=== PATIENT | female | born 1955 | race Caucasian/White ===

== ENCOUNTER → 2024-05-04 09:30 | Outpatient (REF) | payer MEDICARE, OTHER, SELFPAY | LOC: HWRAD 09:30 | PROVIDERS: ATTENDING PHYSICIAN Family Medicine | DX: R29.890 Loss of height (principal); Z12.31 Encounter for screening mammogram for malignant neoplasm of breast; Z78.0 Asymptomatic menopausal state | CPT/HCPCS: 77063; 77067; 77080 ==

== ENCOUNTER → 2024-05-17 07:37 | Outpatient (REF) | payer MEDICARE, OTHER, SELFPAY ==
[2024-05-17 09:05] LABS: % Basophils 1.1 % (0-2); % Eosinophils 4.8 % (0-6); % Immature Granulocytes 0.2 % (0-0.5); % Lymphocytes 36.2 % (20.5-51.1); % Monocytes 10.3 % (1.7-9.3); % Neutrophils 47.4 % (42.2-75.2); Absolute Basophils 0.1 10^3/uL (0-0.2); Absolute Eosinophils 0.4 10^3/uL (0-0.7); Absolute Monocytes 0.9 10^3/uL (0.1-0.6); Absolute Neutrophils 3.9 10^3/uL (1.4-6.5); Hematocrit 45.7 % (37.0-47.0); Hemoglobin 15.8 g/dL (12.0-16.0); Mean Corp Hgb Conc. 34.6 g/dL (33.0-37.0); Mean Corpuscular Volume 86.9 fL (81.0-99.0); Nucleated Red Blood Cells % 0 %; Platelet Count 308 10^3/uL (130-400); Red Blood Cell Count 5.26 10^6/uL (4.20-5.40); Red Cell Dist. Width 14.6 % (11.5-14.5); White Blood Cell Count 8.3 10^3/uL (4.8-10.8)
[2024-05-17 09:15] LABS: ALT (SGPT) 40 U/L (0-35); AST (SGOT) 30 U/L (14-36); Albumin 4.4 g/dl (3.5-5.0); Alkaline Phosphatase 70 U/L (38-126); Blood Urea Nitrogen 21 mg/dl (7-17); Calcium 10.4 mg/dl (8.4-10.2); Carbon Dioxide 26 mmol/L (22-30); Chloride 106 mmol/L (98-107); Glucose 103 mg/dl (70-99); HDL Cholesterol 74 mg/dl; LDL Cholesterol, Calculated 89 mg/dl; Potassium 4.8 mmol/L (3.5-5.1); Sodium 142 mmol/L (135-145); Total Bilirubin 0.7 mg/dl (0.2-1.3); Total Cholesterol 189 mg/dl (50-199); Triglyceride 132 mg/dl (10-149); Very Low Density Lipoprotein 26 mg/dl (0-30); eGFR > 60.00
[2024-05-17 09:41] LABS: TSH Reflex To Free T4 0.71 uIU/ml (0.47-4.68)
== END ==
LOC: REG 07:37
PROVIDERS: ATTENDING PHYSICIAN Family Medicine
DX: I10 Essential (primary) hypertension (principal); E78.00 Pure hypercholesterolemia, unspecified; R53.83 Other fatigue
CPT/HCPCS: 36415; 80053; 80061; 84443; 85025

== ENCOUNTER 2024-10-19 09:30 | Emergency (ER) | payer MEDICARE, OTHER, SELFPAY ==
[2024-10-19 09:33] VITALS: BP 147/83
--- NOTE | 2024-10-19 10:31 | ED.GENMED ---
History of Present Illness
General
Chief Complaint: Musculo-Skeletal Complaint
Source: patient
Exam Limitations: none
Time Seen by Provider: 10/19/24 09:55
Nursing documentation reviewed up to this point in time: agreed with
History of Present Illness
History of Present Illness:
69-year-old female past medical history of hypertension hyperlipidemia presenting to the emergency department today with concerns of left-sided knee discomfort felt a pop to the back of her knee yesterday when stepping up the stairs. Ongoing
discomfort since able to walk but increased discomfort with bending of the knee. Denies any fevers redness or warmth.
Review of Systems
Review of Systems
Allergies reviewed?: Yes
All Other Systems: ROS reviewed and negative except as documented in HPI and ROS
Phy Exam
Physical Exam
Physical Exam:
GENERAL: Alert , in no apparent distress
EYE: pupils equal and reactive
NECK: Supple, no significant adenopathy.
ENT: o/p clr, mmm.
CARDIAC: Regular rate and rhythm .
LUNGS: Clear breath sounds bilaterally, no acute respiratory distress, no wheezes/rales/rhonchi
ABDOMEN: Soft, without focal tenderness, no r/g, no cvat
NEUROLOGICAL: Alert and oriented, no focal neuro deficits
SKIN: Warm and dry, skin intact.
MUSCULOSKELETAL: Mild swelling to the left knee no significant joint laxity increased discomfort with range of motion but able to range well until about 45 degrees. No discomfort to the hip or ankle, no edema, well perfused.
PSYCH: Normal and appropriate interaction.
Course
Orders/Labs/Results
Orders:
Orders
10/19/24 09:32
Knee, Left 4 or More Views [CR Knee - Left 4 Or More View*] Urgent
Comment:
Reason For Exam: pain
Vital Signs
Initial and Last Documented VS:
Initial Vital Signs
Temp Pulse Resp BP Pulse Ox
98.5 F 82 18 147/83 98
10/19/24 09:33 10/19/24 09:33 10/19/24 09:33 10/19/24 09:33 10/19/24 09:33
Last Documented Vital Signs
Temp Pulse Resp BP Pulse Ox
98.5 F 82 18 147/83 98
10/19/24 09:33 10/19/24 09:33 10/19/24 09:33 10/19/24 09:33 10/19/24 09:33
MDM/Problems Addressed
MDM/Problems Addressed:
69-year-old female presenting to the emergency department today with concerns of left knee pain after feeling a pop to her posterior knee yesterday. Had some mild pain over the past 5 days or so as well. Here no joint laxity x-ray without acute
abnormalities. Patient with likely internal knee derangement. Advised for close orthopedic follow-up. Return precautions given.
*Critical Care Note
Total Time (30-74mins, 75-104mins- exclusive of procedures): Not Applicable
ED Attending Note
-
Portions of this chart may have been created with voice recognition software.� Occasional wrong word or��sound alike� substitutions may have occurred due to the inherent limitations of voice recognition software.
Discharge Plan
Departure
Patient Disposition: Home (Routine Discharge)
Date of Disposition: 10/19/24
Time of Disposition: 10:33
Patient with high blood pressure during this ER visit?: No
Condition: Good
Covid-19: Not Applicable
Discharge Problem:
Left knee sprain
Instructions: Knee Sprain (DC)
Referrals:
Bette Kim MD [Family Provider] -
Shaw Harris MD [Active] - Follow up in 5-7 days
Activity Restrictions/Additional Instructions:
You came to the emergency department today with concerns of knee pain. This could be an internal knee injury. Please gradually increase activity and follow-up closely with orthopedics for further management. Return for any worsening, new or
concerning symptoms.
Interventions
Interventions:
*Risk Screen - Suicide Last Done: 10/19/24 09:33
*General Assessment Last Done: 10/19/24 09:33
*Neglect/Abuse Screening Last Done: 10/19/24 09:33
*ED COVID-19 Vaccine History Last Done: 10/19/24 09:33
Discharge Date and Time
Print Language: SAO TOMEAN
== END 2024-10-19 10:45 | disposition home or self-care (01) ==
LOC: EMR 09:30
PROVIDERS: EMERGENCY PHYSICIAN Emergency Medicine; FAMILY PHYSICIAN Family Medicine
DX: S83.92XA Sprain of unspecified site of left knee, initial encounter (principal); X58.XXXA Exposure to other specified factors, initial encounter; I10 Essential (primary) hypertension; E78.00 Pure hypercholesterolemia, unspecified
CPT/HCPCS: 99283; 73564

== ENCOUNTER → 2025-05-24 07:41 | Outpatient (REF) | payer MEDICARE, OTHER, SELFPAY ==
[2025-05-24 08:17] LABS: Hematocrit 45.4 % (37.0-47.0); Hemoglobin 15.0 g/dL (12.0-16.0); Mean Corp Hgb Conc. 33.0 g/dL (33.0-37.0); Mean Corpuscular Volume 87.6 fL (81.0-99.0); Nucleated Red Blood Cells % 0 %; Platelet Count 302 10^3/uL (130-400); Red Cell Dist. Width 15.0 % (11.5-14.5)
[2025-05-24 09:40] LABS: ALT (SGPT) 35 U/L (0-35); AST (SGOT) 26 U/L (14-36); Albumin 4.4 g/dl (3.5-5.0); Alkaline Phosphatase 59 U/L (38-126); Blood Urea Nitrogen 17 mg/dl (7-17); Calcium 10.2 mg/dl (8.4-10.2); Carbon Dioxide 26 mmol/L (22-30); Chloride 107 mmol/L (98-107); Glucose 107 mg/dl (70-99); HDL Cholesterol 69 mg/dl; LDL Cholesterol, Calculated 71 mg/dl; Potassium 5.5 mmol/L (3.5-5.1); Sodium 138 mmol/L (135-145); Total Protein 6.9 g/dl (6.3-8.2); Very Low Density Lipoprotein 16 mg/dl (0-30); eGFR > 60.00
[2025-05-27 09:18] LABS: Glycohemoglobin (HgbA1c) 6.2 % (4.0-5.6)
== END ==
LOC: REG 07:41
PROVIDERS: ATTENDING PHYSICIAN Family Medicine
DX: R53.83 Other fatigue (principal); E78.49 Other hyperlipidemia; I10 Essential (primary) hypertension; R73.9 Hyperglycemia, unspecified
CPT/HCPCS: 36415; 80053; 80061; 83036; 84443; 85025